=== PATIENT | female | born 1980 | race Caucasian/White ===

== ENCOUNTER 2017-07-27 16:05 | Emergency (ER) | payer BC ==
[~2017-07-27] VITALS: Ht 170.2 cm; Wt 97.7 kg
[~2017-07-27 16:05] MED LIST: NO HOME MEDS
[2017-07-27 16:54] VITALS: BP 164/114
[2017-07-27] MEDS ORDERED: LORazepam 1 MG tablet PO ONE (17:20)
== END 2017-07-27 17:29 | disposition home or self-care (01) ==
LOC: ER 16:06
DX: F41.9 Anxiety disorder, unspecified (principal); F10.10 Alcohol abuse, uncomplicated; F17.200 Nicotine dependence, unspecified, uncomplicated; F32.9 Major depressive disorder, single episode, unspecified
CPT/HCPCS: 99282; 99284

== ENCOUNTER 2017-07-28 23:42 | Emergency (ER) | payer BC ==
[~2017-07-28] VITALS: Ht 172.7 cm; Wt 97.0 kg
[2017-07-28 23:50] VITALS: BP 146/90
[2017-07-29] MEDS ORDERED: OLANZapine 5mg rapidly disint. tablet PO ONE (00:05)
== END 2017-07-29 00:40 | disposition home or self-care (01) ==
LOC: ER 23:42
DX: Z02.89 Encounter for other administrative examinations (principal); F10.10 Alcohol abuse, uncomplicated; M06.9 Rheumatoid arthritis, unspecified; Z90.49 Acquired absence of other specified parts of digestive tract; Y90.9 Presence of alcohol in blood, level not specified
CPT/HCPCS: 99282

== ENCOUNTER 2017-12-02 15:02 | Emergency (ER) | payer BC ==
[~2017-12-02] VITALS: Ht 5619.3 cm; Wt 95.4 kg
[2017-12-02] MEDS ORDERED: LORazepam 1 MG tablet PO ONE (15:20)
[2017-12-02 15:51] LABS: BASOPHILS % (AUTO) 0.6 % (0-1); EOSINOPHILS # (AUTO) 0.6 X10'3 (0-0.9); EOSINOPHILS % (AUTO) 8.9 % (0-6); HEMATOCRIT 45.2 % (35.0-45.0); HEMOGLOBIN 15.5 g/dl (12.0-16.0); LYMPHOCYTES # (AUTO) 2.1 X10'3 (1.1-4.8); LYMPHOCYTES % (AUTO) 32.7 % (21-51); MEAN CORPUSCULAR HEMOGLOBIN 31.2 PG (27.0-31.0); MEAN CORPUSCULAR HGB CONC 34.4 % (33.0-36.5); MEAN CORPUSCULAR VOLUME 90.8 FL (78-98); MONOCYTES # (AUTO) 0.4 X10'3 (0-0.9); MONOCYTES % (AUTO) 5.8 % (2-12); NEUTROPHILS # (AUTO) 3.4 X10'3 (1.8-7.7); PLATELET COUNT 226 X10'3 (140-440); RED BLOOD COUNT 4.98 X10'6 (4.20-5.60); RED CELL DISTRIBUTION WIDTH 13.2 % (11.5-14.5); WHITE BLOOD COUNT 6.5 X10'3 (4.5-11.0)
[2017-12-02] MEDS ORDERED: ESCI20TA PO (15:54)
[2017-12-02] MEDS ORDERED: HYDR-3686 PO ×2 (15:54)
[2017-12-02] MEDS ORDERED: IBUP-1986 PO (15:54)
[2017-12-02 15:55] LABS: CLARITY,URINE CLEAR (Clear); COLOR,URINE STRAW (Yellow); GLUCOSE, URINE NEGATIVE (Neg); KETONES,URINE NEGATIVE (Neg); LEUKOCYTE ESTERASE ,URINE NEGATIVE (Neg); NITRITES, URINE NEGATIVE (Neg); OCCULT BLOOD,URINE MODERATE (Neg); PROTEIN,URINE 100 mg/dl (Neg); URINE HCG NEGATIVE (NEG); UROBILINOGEN,URINE 0.2 E.U/dL (0.2-1.0)
[2017-12-02 15:56] LABS: UA COLLECTION TYPE CLN CATCH MIDSTREAM
[2017-12-02 16:00] LABS: BACTERIA,URINE 1+ /HPF (Neg); RBC,URINE 0-2 /HPF (0-2); SQUAMOUS EPITHELIAL CELL,UR MODERATE /LPF (FEW); WBC,URINE 0-4 /HPF (0-4)
[2017-12-02 16:06] LABS: ALANINE AMINOTRANSFERASE 292 U/L (12-78); ALBUMIN 3.6 G/DL (3.4-5.0); ALBUMIN/GLOBULIN RATIO 0.7 (1.1-1.5); ALKALINE PHOSPHATASE 128 IU/L (46-116); ANION GAP 13 (8-16); ASPARTATE AMINO TRANSFERASE 360 U/L (10-37); BILIRUBIN,TOTAL 0.7 MG/DL (0.1-1.0); BLOOD UREA NITROGEN 8 MG/DL (7-18); BUN/CREATININE RATIO 11.3 (6.6-38.0); CHLORIDE 102 MMOL/L (99-107); CREATININE 0.71 MG/DL (0.40-0.90); GLUCOSE 109 MG/DL (70-104); POTASSIUM 3.7 MMOL/L (3.5-5.1); SODIUM 141 MMOL/L (135-145); eGFR > 90 ML/MIN
[2017-12-02 16:07] LABS: URINE AMPHETAMINE SCREEN NEGATIVE (Neg); URINE BARBITUATE SCREEN NEGATIVE (Neg); URINE BENZODIAZEPINES SCREEN NEGATIVE (Neg); URINE CANNABINOID SCREEN NEGATIVE (Neg); URINE COCAINE SCREEN NEGATIVE (Neg); URINE METHADONE SCREEN NEGATIVE (Neg); URINE OPIATE SCREEN NEGATIVE (Neg); URINE PHENCYCLIDINE SCREEN NEGATIVE (Neg)
[2017-12-02] MEDS ORDERED: LORA1TAB PO (16:26)
[2017-12-02] MEDS ORDERED: traMADol 50MG tablet PO ONE (18:05)
[2017-12-02] MEDS: hydrOXYzine 25 MG tablet PO PRN (18:48)
[2017-12-02] MEDS: ibuprofen 200mg tablet PO SCH (19:07)
[2017-12-02] MEDS: hydrOXYzine 25 MG tablet PO SCH (20:20)
[2017-12-02] MEDS: LORazepam 1 MG tablet PO PRN (22:33)
[2017-12-03] MEDS: ibuprofen 200mg tablet PO SCH ×2 (04:56)
[2017-12-03] MEDS: citalopram 20mg tablet PO SCH (07:41)
[2017-12-03] MEDS: LORazepam 1 MG tablet PO PRN ×3 (07:41→20:52)
[2017-12-03] MEDS: ibuprofen 200mg tablet PO PRN (14:31)
[2017-12-03] MEDS: hydrOXYzine 25 MG tablet PO SCH (20:52)
[2017-12-04] MEDS: ibuprofen 200mg tablet PO PRN ×3 (00:33→16:38)
[2017-12-04] MEDS: LORazepam 1 MG tablet PO PRN ×2 (08:21→15:38)
[2017-12-04] MEDS: citalopram 20mg tablet PO SCH (08:21)
[2017-12-04] MEDS: hydrOXYzine 25 MG tablet PO PRN (13:31)
[2017-12-04] MEDS ORDERED: nicotine 7mg patch - 24hr TD SCH (15:55)
[2017-12-04] MEDS: hydrOXYzine 25 MG tablet PO SCH (19:29)
[2017-12-04 19:47] VITALS: BP 142/87
== END 2017-12-04 19:53 ==
LOC: ER 15:03
DX: F32.9 Major depressive disorder, single episode, unspecified (principal); F41.9 Anxiety disorder, unspecified; R45.851 Suicidal ideations; M19.90 Unspecified osteoarthritis, unspecified site; F10.10 Alcohol abuse, uncomplicated; Z79.899 Other long term (current) drug therapy
CPT/HCPCS: 36415; 80053; 80305; 80320; 81001; 81025; 84443; 85025; 93005; 99285; Q0177